=== PATIENT | female | born 1945 | race Caucasian/White ===

== ENCOUNTER 2018-05-30 06:06 | Day surgery (SDC) | payer MEDICARE, SELFPAY ==
[2018-05-26 11:42] VITALS: BMI 26.1
[2018-05-30] VITALS (10 sets, daily range): BP systolic 110–137; BP diastolic 56–66; PULSE 54–67; RESP 12–18; TEMP 36.2–36.6; O2SAT 92–100; BMI 26.0
[2018-05-30] MEDS: LACTATED RINGERS 1,000 ML 42 ML IV (07:00)
[2018-05-30] MEDS: fentaNYL 100 MCG/2 ML INJ 50 MCG IV (07:46)
--- NOTE | 2018-05-30 07:51 | PM.PREOP ---
Pre-operative Note Interval Note Pre-op Check: Yes History & Physical Reviewed by Physician and Yes Exam Performed Changes: No
[2018-05-30] MEDS: CEFAZOLIN VIAL 1 GM in SODIUM CHLORIDE 0.9% 100 ML 200 ML IV (08:02)
--- NOTE | 2018-05-30 08:08 | SUR.PREOP ---
Block start time [0746] . Monitoring initiated and maintained throughout procedure. Oxygen and medications given per anesthesiologist instructions. Patient remained stable throughout procedure, no adverse reactions noted. Block end time [0800]. pt family at bedside during block. pt alert and talking to staff during procedure. pt transported to or directly after completion of block.
[2018-05-30] MEDS: MIDAZOLAM 2 MG/2 ML VIAL 1 MG IV (08:10)
--- NOTE | 2018-05-30 08:37 | SUR.OPER ---
Lateral on padded OR bed with perez bag positioner, head on pillow, gel axillary roll in place, bottom leg bent with gel pad under knee to foot, upper leg straight and supported with pillows. Operative arm secured in shoulder positioning suspension device. non-operative arm secured on padded arm board. Safety belt at hip, tape over blanket securing lower legs.
[2018-05-30] MEDS: BUPIVACAINE 0.5% W/ EPI (PF) VIAL 30 ML INJ (08:57)
--- NOTE | 2018-05-30 09:25 | P.OP_ITS ---
Operative Date/Time/Diagnoses Date of procedure: 05/30/18 Time of procedure: 09:00 Pre-op diagnosis: Right shoulder high-grade partial-thickness rotator cuff tear Post-op diagnosis: other (Same with the addition of right shoulder mild osteoarthritis and loose body) Procedure & Clinicians Procedure: 1. Right shoulder arthroscopic major debridement with debridement of labral tear and partial-thickness rotator cuff tear as well as subacromial decompression. 2. Right shoulder arthroscopic removal of loose body Same procedure as scheduled: No (The 2nd procedure was added. The 1st procedure was less than anticipated as a rotator cuff repair was not necessary.) Indications: The patient is a 73-year-old woman who has had a history of chronic right shoulder pain that has not responded to non operative measures. After discussion the risks benefits alternatives she has agreed to shoulder arthroscopy with potential rotator cuff repair and subacromial decompression. Risks discussed included but were not limited to: Failure to improve, stiffness , infection, nerve damage, deep venous thrombosis, pulmonary embolism, stroke, myocardial infarction, permanent paralysis and . Surgeon: Michael Richmond Click Yes if Unassisted: Yes Anesthesia Type: General, Peripheral nerve block and Local Operative Notes Findings: 1. Moderate glenohumeral degenerative change with grade 2 changes on the humeral head and relative preservation of the glenoid. There were small inferior humeral osteophytes. There was also an approximately 4 x 3 x 2 mm chondral osseous loose body. 2. Widespread degenerative fraying of the labrum 3. Intact glenohumeral ligaments 4. Intact subscapularis 5. Intact biceps 6. Partial thickness tearing of the supraspinatus with about 4 mm of uncovering of the footprint with a loose flap in the glenohumeral joint 7. Intact infraspinatus 8. Normal axillary pouch with the exception of the small osteophyte mentioned above. 9. Minimal fraying but no tearing of the bursal rotator cuff 10. Type 2 acromion with impingement lesion 11. Acromioclavicular joint not visualized 12. Exam under anesthesia notable for full range of motion and no evidence for pathologic laxity. Closure Type: primary Specimen(s): none sent Implants & Drains: None. Estimated Blood Loss (mL): 10 Blood products transfused: none Procedure in detail: The patient was seen in the preoperative area where she identified her right shoulder as the operative site and this was marked with my initials. She received preoperative antibiotics and underwent the induction of an interscalene block for postoperative pain control. She was then taken to the operating room and placed on the operating room table in the supine position where she underwent the induction of a general anesthetic. She was examined under anesthesia with the result given above. She was then repositioned the left lateral decubitus position with an axillary roll and padding for all pressure points. She was stabilized in this position using the perez bag. A farmer tree fruit and nut crops-out was performed prior to draping. The right arm was repaired from the fingertips to the base the neck with ChloraPrep in the usual fashion and she was draped through sterile drapes. The arm was placed in 10 lb of balanced skin suspension. Subcutaneous landmarks were outlined on the skin with a marking pen and portal sites selected. The posterior portal was created and the arthroscope inserted in the glenohumeral joint. Diagnostic arthroscopy was performed with the result given above. An anterior portal was used for the shaver. The shaver was inserted and used to excise the loose body, debride the labrum and debride the rotator cuff flap to a stable base. The footprint of the rotator cuff was carefully inspected it did not appear that in the absence of bursal involvement there would need to be a repair. The rotator cuff was marked with a percutaneously placed suture. The arthroscope was withdrawn from the glenohumeral joint and reinserted into the subacromial bursa through the posterior portal. The suture was identified and the surrounding cuff carefully inspected. There was no need for rotator cuff repair. A bursectomy was performed for visualization. The type 2 acromion was converted to a type 1 acromion using the cutting block technique due to the impingement lesion. I did not expose the acromioclavicular joint due to the lack of preoperative symptoms. At the completion of the subacromial decompression, all equipment was removed. The wounds were closed with 4 0 Monocryl and Steri-Strips. The subcutaneous tissues and the subacromial bursa were each injected with 10 mL of 0.5% Marcaine with epinephrine for postoperative pain control. Dressings of sterile 4x4s, an ABD and an adhesive dressing were applied. The patient's arm was placed in a sling. She was transported to the recovery room in good condition having tolerated the procedure well. Complications: none Condition: stable Disposition: PACU Plan for aftercare: The patient will be maintained on a standard arthroscopic subacromial decompression physical therapy protocol with range of motion and strengthening as tolerated. She will wear the sling for comfort only. Our plan is for her to be discharged today.
[2018-05-30] MEDS: OXYCODONE IR 5 MG TABLET PO (09:40)
== END 2018-05-30 10:15 | disposition home or self-care (01) ==
PROVIDERS: Visit Provider Orthopaedic Surgery
PROC: (CPT 29827; principal; 2018-05-30 07:45)
DX: M75.111 Incomplete rotator cuff tear or rupture of right shoulder, not specified as traumatic (principal); M24.011 Loose body in right shoulder; I48.91 Unspecified atrial fibrillation; I10 Essential (primary) hypertension; G89.18 Other acute postprocedural pain
CPT/HCPCS: 29822; 29826; 64415; 64450; J0690; J1100; J2250; J2405; J3010

== ENCOUNTER 2023-09-26 07:37 | Inpatient (IN) | payer MEDICARE, SELFPAY ==
[2023-09-19 12:33] VITALS: BMI 23.8
[2023-09-26] VITALS (16 sets, daily range): BP systolic 115–150; BP diastolic 44–97; PULSE 62–90; RESP 8–17; TEMP 35.9–36.4; O2SAT 95–100; BMI 23.8
--- NOTE | 2023-09-26 08:56 | PM.PREOP ---
Pre-operative Note Interval Note History & Physical reviewed/Exam performed by Physician: Yes Changes to H&P: No
[2023-09-26] MEDS: ACETAMINOPHEN 325 MG TABLET 975 MG PO (08:58)
[2023-09-26] MEDS: LACTATED RINGERS 1,000 ML 42 ML IV ×2 (08:58→11:05)
[2023-09-26] MEDS: CEFAZOLIN 2 GM/100 ML PREMIX 100 ML IV ×3 (09:54→18:01)
--- NOTE | 2023-09-26 09:59 | PM.OP.1 ---
Operative Date/Time/Diagnoses Date of procedure: 09/26/23 Time of procedure: 09:59 Pre-op diagnosis: 1. L3-4, L4-5, L5-S1 spondylolisthesis 2. L3-4, L4-5, L5-S1 spinal stenosis with neurogenic claudication 3. L3-4, L4-5, L5-S1 foramen stenosis with radiculopathy Post-op diagnosis: same Procedure & Clinicians Procedure: 1. L3-4, L4-5, L5-S1 Postero-lateral and posterior interbody fusion 2. L3-4, L4-5, L5-S1 interbody cage placement. 3. L3-4, L4-5, L5-S1 decompressive laminectomy with bilateral facetecomies 4. L3-4, L4-5, L5-S1 Posterior segmental instrumentation 5. [place] of bone marrow from iliac crest 6. Utilization of microsurgical technique and operating microscope 7. Utilization of robotic assisted navigation Same procedure as scheduled: Yes Indications: Patient has been having chronic back pain and worsening lumbar radiculopathy and symptoms of neurogenic claudication. Patient has MRI of her lumbar spine showing L3-4 L4-5 L5-S1 spondylolisthesis along with central and neural foraminal stenosis correlating with her physical exam findings of neurogenic claudication and radiculopathy. Patient failed multiple conservative management with worsening pain weakness and numbness in her lower extremity. Patient has been having difficulty performing activity of daily living. After discussing risks benefits of treatment options, patient elected proceed with surgery. Surgeon: Denis Jones Bowling Alley Attendant: Colt Paul Anesthesia Type: General Operative Notes Closure Type: primary Specimen(s): none sent Prosthetic devices, grafts, tissues, transplants, or devices: Globus CREO MIS screws, Rise cages Applied: catheter Estimated Blood Loss (mL): 350 Procedure in detail: Patient was seen in the preoperative area. Risks and benefits of the surgery was discussed with the patient. Informed consent was obtained from the patient and placed in the chart. Surgical site was marked. Patient was taken to the operative room. General anesthesia was administered. Prophylactic antibiotic was given to the patient less than 30 min before the incision was made. Patient was placed into a prone position on the Adrián table. Patient's back was then prepped and draped in the sterile fashion. Time-out was performed at this time. After patient was prepped and draped, patient's PSIS was palpated and marked bilaterally. Small 1 cm incision was made over the PSIS for placement of the reference probes. Two trocar was placed into the PSIS 1 on each side. The reference probe was attached to the trocar of the reference apparatus. At this time the C-arm imaging was used to confirm AP and lateral of L3-4, L4-L5, L5-S1 vertebrae and merged the C-arm imaging using the Sensorflare PC robotic navigation system with the CT of the lumbar spine. After successful merging was completed and confirmed, skin marker was used to julianna out the skin incision using the Sensorflare PC robotic arm. Bilateral incision was made at this time. Pre templated trajectory was used and guided using the Sensorflare PC robotic navigation system for bilateral L3, L4, L5, S1 pedicle screw placement. This was done by using the robotic arm to guide the high-speed bur to make a cortical entry point. Next a drill was placed also using the robotic arm and guided using the navigation system drilling partially through bilateral L3, L4, L5 and S1 pedicles. Next L3, L4, L5, S1 pedicle screws it was pre templated and measured was placed onto the power speedboat driver and inserted into the pedicles bilaterally. 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 Decision was made to skip the left L5 pedicle and place pedicle screws in the other 7 pedicles. After all 7 screws were placed C-arm imaging was taken of both AP and lateral to confirm the placement. Excellent placement of the screws were confirmed and a matched precisely with the pre planned screw placement using the navigation system. MARs retractor was inserted using SavvySystemsivation guidence. Globus MARS retractors was placed inside the incision and docked onto the L3, L4 and L5 lamina. Using microsurgical technique and operating microscope, a L3, L4, L5 laminectomy and L3-4, L4-5, L5-S1 facetectomy was performed using a Kerrison rongeur. The laminectomy and facetectomy was performed in order to decompress patient's cauda equina as well as the nerve roots exiting at the L3-4, L4-5, L5-S1 level. Patient was found have severe lateral recess and neural foramen stenosis which was fully decompressed after the laminectomy and facetectomy. More than 75% of the facets were removed during the process of decompression rendering L3-4, L4-5, L5-S1 level grossly unstable and required a fusion procedure at the same time. The disc space at L3-4, L4-5, L5-S1 was identified, and a total diskectomy was performed at L3-4, L4-5, L5-S1 level. The endplates were decorticated using a rasp and shaver. The total diskectomy and decortication was performed at L3-4, L4-5, L5-S1 level in order to to accomplish a L3-4, L4-5, L5-S1 fusion. The local bone from the laminectomy and facetectomy was saved for local bone grafting. After the total diskectomy and decortication was completed, DBM bone graft material was combined with local bone that was harvested earlier. L3-4 L4-5 also was found have significant central stenosis due to facet arthropathy and hypertrophied ligamentum flavum which was fully decompressed after the laminectomy and facetectomy was completed. At this time, a separate skin is incision was made over the iliac crest. A Jamshidi needle was inserted into the iliac crest through a separate skin incision. 5 cc of bone marrow aspiration was obtained through the separate skin incision using a Jamshidi needle from the iliac crest. The bone marrow aspiration was combined with local bone and the DBM bone grafting material. The bone grafting material was placed into the L3-4, L4-5, L5-S1 interbody space along with a expandable cage. The cage was expanded to its maximum height using the torque limiting screwdriver. The disc preparation as well as the cage insertion were also performed under navigation guidance. After the cage was placed, AP and lateral C-arm imaging was taken to confirm placement of the cage and excellent position was confirmed. Globus MARS retractor was inserted and docked onto the L3-4, L4-5, L5-S1 posterolateral gutter on the right side. Using the power drill, posterior-lateral decortication was performed at L3-4, L4-5, L5-S1 level until bleeding cortical bone was identified. The remaining bone grafting material was placed into the L3-4, L4-5, L5-S1 posterior lateral gutter he order to accomplish posterolateral fusion at the L3-4, L4-5, L5-S1 level. At this time the tulips were attached to the L3, L4, L5, S1 pedicle screw shanks. After measuring the length of the rods, they were inserted into the tulips of the pedicle screws and locked in place using locking caps and torque limiting screwdriver bilaterally. Total 7 caps and 2 titanium rods was used in order to complete the posterior instrumentation construct. After all the hardware was placed, and confirmed with AP and lateral C-arm imaging, the wound was then irrigated with sterile normal saline and packed with Ray-Betty gauze for 3 min to accomplish hemostasis. After the gauze was removed the deep fascia was closed with #1 Vicryl suture. The subcutaneous layer was closed with 2-0 Vicryl. The skin was closed with skin tomas. Patient tolerated the procedure well. There were no complications. Neuro monitoring system was used to monitor patient's neurologic status throughout entire procedure. There was no disturbance of the neural monitoring signals throughout the case. Complications: none Post-operative Condition: stable Disposition: PACU Plan for aftercare: Admit to inpatient hospital
--- NOTE | 2023-09-26 10:24 | SUR.OPER ---
Prone on spine table, head in foam head support, padded chest and pelvic supports, gel pad at knees, lower legs supported by pillows; nipples, genitalia and toes free of pressure, arms secured on foam padded arm boards at <90 degrees abduction. Tape over blanket at thigh secured to table.
[2023-09-26] MEDS: BUPIVACAINE LIPOSOME 266 MG/20 ML VIAL INJ (10:32)
[2023-09-26] MEDS: BUPIVACAINE 0.25% (PF) 30 ML, EPINEPHrine 0.15 MG INJ (10:32)
--- NOTE | 2023-09-26 14:29 | DI.RAD.S_ITS ---
PROCEDURE: XR LUMBAR SPINE 2-3V INDICATIONS: L3-4, L4-5, L5-S1 TLIF (ROBOT) TECHNIQUE: 3 intraoperative fluoroscopic spot films were obtained COMPARISON: None. FINDINGS: Low resolution intraoperative spot films show appropriate positioning of L3, L4, L5 and S1 pedicle screws mild with associated interbody fusion cages. IMPRESSION: 1. Fluoroscopic guidance Approved by: Jason Blanchard M.D. on 09/26/2023 at 15:01
[2023-09-26] MEDS: HYDROMORPHONE 1 MG INJ IV ×2 (14:55→15:05)
[2023-09-26] MEDS: hydrOXYzine 50 MG/ML INJ 25 MG IM (14:56)
[2023-09-26] MEDS: OXYCODONE IR 5 MG TABLET PO (15:07)
--- NOTE | 2023-09-26 15:26 | SUR.PHASEI ---
Report called to Junie Dubon.
--- NOTE | 2023-09-26 15:51 | SUR.PHASEI ---
Patient transferred to the floor with her belongings bag. Bedside report given to Junie. VS stable. IV and rodriguez patent. Dressing checked with RN.
[2023-09-26] MEDS: LACTATED RINGERS 1,000 ML 125 ML IV (16:40)
[2023-09-26] MEDS: HYDROMORPHONE 0.5 MG INJ IV ×2 (16:40→23:25)
[2023-09-26] MEDS: ONDANSETRON 4 MG/2 ML INJ IV (16:40)
[2023-09-26] MEDS: allopurinoL 100 MG TABLET 300 MG PO (18:00)
--- NOTE | 2023-09-26 19:40 | PC.NURSE ---
Around 1730, pt requested to stand at the bedside to help relieve pain/pressure from back and to reposition pt. When pt sat up and dangled at bedside, this RN reassessed dressing. There were mendoza on dressing from [employer], and she reported that there was slight shadowing. Pt's L side of dressing was completely shadowed over, and R side only had the sm shadow julianna from [employer]. This RN reported this finding in pass down to night RN.
[2023-09-26] MEDS: DOCUSATE 100 MG CAPSULE PO (21:11)
[2023-09-26] MEDS: FLUTICASONE 120 SPRAY/16 GM SPRAY.SUSP NASAL (21:11)
[2023-09-26] MEDS: SENNOSIDES 8.6 MG TABLET 17.2 MG PO (21:12)
[2023-09-26] MEDS: EZETIMIBE 10 MG TABLET PO (21:12)
[2023-09-26] MEDS: TRAZODONE 50 MG TABLET PO (21:12)
[2023-09-26] MEDS: MELOXICAM 7.5 MG TABLET 15 MG PO (21:12)
[2023-09-26] MEDS: OXYCODONE IR 10 MG TABLET PO (21:12)
--- NOTE | 2023-09-26 23:48 | PC.NURSE ---
Lower back staple oozing blood, reinforced dressing with gauze, abd pad and tape. Pt tolerated well, will continue to monitor
[2023-09-27] MEDS: CEFAZOLIN 2 GM/100 ML PREMIX 100 ML IV (02:00)
[2023-09-27] MEDS: OXYCODONE IR 10 MG TABLET PO (02:04)
[2023-09-27] MEDS: LEVOTHYROXINE 88 MCG TABLET PO (05:27)
[2023-09-27 05:57] LABS: Hematocrit 30.2 % (36-46); Hemoglobin 9.9 g/dL (12.0-16.0)
[2023-09-27 06:00] VITALS: BP 93/40; PULSE 77; RESP 18; TEMP 36.4; O2SAT 98
--- NOTE | 2023-09-27 07:41 | P.DS_ITS ---
History of Present Illness History of Present Illness Date Patient Seen: 09/27/23 Time Patient Seen: 07:30 Chief complaint: TLIF Narrative: Procedure: 1. L3-4, L4-5, L5-S1 Postero-lateral and posterior interbody fusion 2. L3-4, L4-5, L5-S1 interbody cage placement. 3. L3-4, L4-5, L5-S1 decompressive laminectomy with bilateral facetecomies 4. L3-4, L4-5, L5-S1 Posterior segmental instrumentation 5. [place] of bone marrow from iliac crest 6. Utilization of microsurgical technique and operating microscope 7. Utilization of robotic assisted navigation Same procedure as scheduled: Yes Indications: Patient has been having chronic back pain and worsening lumbar radiculopathy and symptoms of neurogenic claudication. Patient has MRI of her lumbar spine showing L3-4 L4-5 L5-S1 spondylolisthesis along with central and neural foraminal stenosis correlating with her physical exam findings of neurogenic claudication and radiculopathy. Patient failed multiple conservative management with worsening pain weakness and numbness in her lower extremity. Patient has been having difficulty performing activity of daily living. After discussing risks benefits of treatment options, patient elected proceed with surgery. This morning patient is feeling well. She is ready to go back home. She has already been able to ambulate on her own to the bathroom and back. Pain is controlled with oral pain relievers. Denies any vomiting fever or chills. She had an episode of nausea which was alleviated with oral medication. Denies any numbness or tingling into the lower extremities. Discharge Providers Provider Date of admission: 09/26/23 07:37 Discharge Date: 09/27/23 Primary care physician: Jesse Lopez DO Consults: 09/26/23 15:52 Consult to Occupational Therapy Evaluate & Treat Comment: Physician Instructions: Evaluate and treat Consult to Physical Therapy Evaluate & Treat Comment: Physician Instructions: Evaluate and Treat Discharge provider: Barrington Harris PA-C Summary Hospital Course Hospital Course: Pain control. Physical therapy. Time Spent with Patient Time spent: Less than 30 minutes Exam Vital Signs (past 8 hours): - 09/26/23 23:45 09/27/23 06:00 Temperature 97.1 F L 97.6 F Pulse Rate 69 77 Respiratory Rate 16 18 Blood Pressure 115/44 L 93/40 L Pulse Oximetry 99 98 Oxygen Flow Rate 0 0 Oxygen Delivery Method Room Air Oxygen Flow Rate 0 Narrative Exam Narrative: Patient is found sitting comfortably up in her bed. She is able to easily flex forward to show incision site. Dressing appears in incision appears to be well- maintained no sign of drainage. Nontender to palpation. No pain along posterior thigh or calf bilaterally. Sensation grossly intact lower extremities bilaterally. Able to dorsiflex and plantar flex against resistance at the ankle bilaterally. Const General: cooperative and comfortable Resp Effort & Inspection: normal respiratory effort and able to speak in complete sentences Objective Labs 09/27/23 05:46 Labs: Laboratory Results - last 24 hr 09/27/23 05:46 Hgb 9.9 L Hct 30.2 L PFSH Medical History (Updated 09/19/23 @ 13:24 by Wendi Kinsey RN) Depression Anesthesia complication (2007) Esophageal spasm Hearing impaired Esophageal pain Bilateral shoulder pain Vaginal prolapse Herniated disc Back pain Hypotension HTN (hypertension) Paroxysmal A-fib Cellulitis Gastric ulcer Gout Elevated cholesterol Macular degeneration Surgical History (Updated 09/19/23 @ 13:24 by Wendi Kinsey RN) Hx of repair of right rotator cuff Hx of toe surgery S/P carpal tunnel release H/O: hysterectomy Hx of sinus surgery Hx of thyroidectomy Hx of tonsillectomy Social History household members: spouse Smoking Status: Current every day smoker alcohol intake: current Discharge Assessment & Plan Assessment and Plan Assessment: Status post 1. L3-4, L4-5, L5-S1 Postero-lateral and posterior interbody fusion 2. L3-4, L4-5, L5-S1 interbody cage placement. 3. L3-4, L4-5, L5-S1 decompressive laminectomy with bilateral facetecomies 4. L3-4, L4-5, L5-S1 Posterior segmental instrumentation Plan of Treatment: Work with physical therapy today for approval to be discharged home. No deep bending or twisting at the waist. No lifting more than 10 pounds. Multimodal pain control. Medications already prescribed and received preoperatively. Follow up in 2 weeks for wound check at [facility]. Discharge Plan Discharge Plan Patient Disposition: Home Provider Discharge Comment: DC pending PT approval Discharge orders & Medications Prescriptions: Continued fluticasone propionate [Flonase Allergy Relief] 50 mcg/actuation [place],Suspension 1 spray INTRANASAL BID allopurinol 300 mg Tablet 300 mg PO QPM PreserVision AREDS-2 [id number] Capsule 1 tab PO BID trazodone 50 mg Tablet 50 mg PO BEDTIME metoprolol succinate 100 mg Tablet Extended Release 24 Hr 100 mg PO DAILY levothyroxine 88 mcg Tablet 88 mcg PO DAILY lisinopril 10 mg Tablet 10 mg PO DAILY hydrochlorothiazide 25 mg Tablet 25 mg PO DAILY ezetimibe [Zetia] 10 mg Tablet 10 mg PO BEDTIME omeprazole 20 mg Tablet,Delayed Release (Dr/Ec) 20 mg PO DAILY PRN (Reason: GI Upset) Discontinued meloxicam 15 mg Tablet 15 mg PO BEDTIME Follow up/Referrals: Jesse Lopez DO [Primary Care Provider] - Diet/Activity/Treatments Diet: Diet as Tolerated Activity: No deep bending or twisting at the waist. No lifting more than 10 pounds. Cold/Heat Therapy: Heating pad to low back as needed for pain. Skin/Wound/Dressing Care Report to your healthcare provider any signs of infection, such as:: chills, fever, night sweats, unusual drainage and unusual redness Dressing: May shower. Keep dressing as dry as possible. If dressing becomes wet or dirty, remove and replace with clean, dry gauze. Visit Report/Discharge Packet Instructions: DI for Transforaminal Lumbar Interbody Fusion Stand Alone Forms: Patient Portal/API, Stroke Signs & Symptoms Discharge Data Primary Care Provider: Jesse Lopez Quality VTE Deep Vein Thrombosis/Pulmonary Embolism Present on Admission: No
[2023-09-27] MEDS: polyethylene glycoL 3350 17 GM POWD.PACK PO (08:26)
[2023-09-27] MEDS: DOCUSATE 100 MG CAPSULE PO (08:26)
[2023-09-27] MEDS: VIT C/E/ZN/COPPR/LUTEIN/ZEAXAN CAPSULE 1 CAP PO (08:26)
[2023-09-27] MEDS: ACETAMINOPHEN 325 MG TABLET 650 MG PO ×2 (08:27→14:48)
[2023-09-27 08:37] VITALS: BP 113/41; PULSE 67; RESP 16; TEMP 36.7; O2SAT 98
--- NOTE | 2023-09-27 09:53 | OT.IP.EVAL ---
Current Diagnoses Spondylolisthesis, lumbar region (09/26/23) Spinal stenosis, lumbar region with neurogenic claudication (09/26/23) Surgery Performed Operation Date: 09/26/23 09:15 Actual Procedures p L3-4, L4-5, L5-S1 TLIF w. posterior instrumentation- Robot - Denis Jones MD Past Medical History (Last Updated 09/19/23 @ 13:24 by Wendi Kinsey, RN) Anesthesia complication (2007) Back pain Bilateral shoulder pain Cellulitis Depression Elevated cholesterol Esophageal pain Esophageal spasm Gastric ulcer Gout Hearing impaired Herniated disc HTN (hypertension) Hypotension Macular degeneration Paroxysmal A-fib Vaginal prolapse Surgical History (Last Updated 09/19/23 @ 13:24 by Wendi Kinsey RN) H/O: hysterectomy Hx of repair of right rotator cuff Hx of sinus surgery Hx of thyroidectomy Hx of toe surgery Hx of tonsillectomy S/P carpal tunnel release Occupational Therapy Inpatient Evaluation/Re-Eval M1 PT/OT-IP Prior Functional Status Start: 09/27/23 09:55 Freq: NEEDED Status: Active Protocol: Document 09/27/23 09:55 [facility] (Rec: 09/27/23 10:11 [facility] [id number]) Medical Review Prior Functional Status Communication Independent Mobility and Gait Pt had to use shopping cart at the grocery store. Pt also states at times her legs would just give out. Activities of Daily Living and IADL's Pt states able to do all ADl and IADl needs. Social History Household Members spouse Living Arrangements House Number of Floors (Floors) One Floor Number of Stairs To Enter/Railing? One step with left rail, landing, and two more step with left rail going up to the deck. Then another two steps to the door with left rail going up. Home Environment High Toilet,Walk in Shower, Bidet Home Equipment Four Wheel Walker,Straight Cane,Manual Wheelchair,Shower Seat with Backrest,Hand Held Shower Additional Social History Comment Pt's granddaughter to be staying for the next 6 weeks and also her is able to assist her. M2 OT-IP Current Condition Start: 09/27/23 09:55 Freq: Status: Active Protocol: Document 09/27/23 09:55 [facility] (Rec: 09/27/23 10:11 [facility] [id number]) Occupational Therapy Current Condition Current Condition Evaluation Date 09/27/23 Treatment Diagnosis S/P L3-4, L4-5, L5-S1 postero- lateral/posterior interbody fusion. Diagnosis Onset Date 09/26/23 Post Operative Precautions Lumbar Precautions Log Roll,No Twisting,Limit Bending,Lifting Restriction of 10 lbs,Gait Belt above Incisional Area M3 OT- IP Subjective and Pain Start: 09/27/23 09:55 Freq: Status: Active Protocol: Document 09/27/23 09:55 [facility] (Rec: 09/27/23 10:11 [facility] [id number]) OT- Subjective Occupational Therapy Visit Type Type Initial Evaluation Visit Start Time 09:00 Visit Stop Time 09:53 Occupational Therapy Visit Comments Patient Comments Pt agreed to get up and pt's granddaughter in the room for caregiver training. Patient/Caregiver Goals TO go home. OT Pain Assessment Pain When Pain Assessed At Rest Pain Present Pain Present Denied Pain M4 OT- IP ADL's Start: 09/27/23 09:55 Freq: Status: Active Protocol: Document 09/27/23 09:55 [facility] (Rec: 09/27/23 10:11 [facility] [id number]) OT [id number] General Evaluation Self-Feeding Ability Independent OT ADL-Grooming Comments OT Grooming Comments NOt performed. Educated of back precautions for ADL needs . OT ADL-Oral Care Comments Oral Care Comments NOt performed. OT ADL-Dressing General Eval Lower Body Dressing Ability Maximum Assistance Comments OT Dressing Comments Educated and practiced use of sock aid and wireless operator for LB dressing needs. OT ADL-Toileting Comments OT Toileting Comments Spoke on use of pads/brief at night and possibly getting a BSC as pt frequently gets up at night. Pt states to be calling her granddaughter to assist her at night to the bathroom. OT ADL-Bathing Comments OT Bathing Comments Pt will have assist. M5 OT- IP IADL's Start: 09/27/23 09:55 Freq: Status: Active Protocol: Document 09/27/23 09:55 [facility] (Rec: 09/27/23 10:11 [facility] [id number]) OT-Instrumental Activities of Daily Living Deficits IADL Deficits Identified Deficits Home Safety Awareness Awareness of Need for Assistance at Home Good Awareness Home Safety Comments Pt a little groggy and best to have at least supervision for all needs. Medication Management Medication Management Comments Pt to have assist as needed. Money Management Money Management Comments Pt to have assist as needed. Meal Preparation Meal Preparation Caregiver Provides Assist Nutrition Faculty Member Nutrition Faculty Member Caregiver Provides Assist M6 OT- IP Functional Cognition Start: 09/27/23 09:55 Freq: Status: Active Protocol: Document 09/27/23 09:55 [facility] (Rec: 09/27/23 10:11 [facility] [id number]) Cognitive Factors Limiting Selfcare Function Cognitive Ability Level of Alertness Alert,Confusional State Patient Orientation Name,Place,Situation Attention Span Ability Capable of Focused Attention, Capable of Sustained Attention Ability to Follow Commands Able to Follow One Step Commands with Increased Time, Able to Follow One Step Commands with Repetition Cognitive Comments Cognitive Assessment Comments Pt a little groggy and had to be reminded of her back precautions. VC for hand placement and safety awareness . OT- Vision and Hearing OT- Hearing Assessment OT- Hearing Assessment Hearing Impaired,Use of Hearing Aids OT- Vision Assessment Visual Acuity Glasses All The Time Visual Attentiveness WFL Occular Pursuits WFL M7 OT- IP Mobility and Balance Start: 09/27/23 09:55 Freq: Status: Active Protocol: Document 09/27/23 09:55 [facility] (Rec: 09/27/23 10:11 [facility] [id number]) OT- Bed Mobility Assessment Rolling Level of Assistance Standby Assistance Supine to Sit Supine to Sit Assist Standby Assistance Sit to Supine Sit to Supine Assist Contact Guard Assistance, Minimal Assistance Scooting Scooting to Edge of Bed Standby Assistance OT-Transfer Assessment Sit to and From Stand Sit to and from Stand Contact Guard Assistance Technique Transfer Destination Bed Transfer Technique Stand Step Pivot Devices Transfer Assistive Devices Gait Belt,Front Wheeled Walker Comments Mobility Comments Pt needing education for log rolling. CGA to GONZALO to help get her legs back into bed. Able to educated pt's grand daughter how to doc/doff the gait belt and now to assist with transfers. BP sitting 108/38, standing 87 /38, sitting 91/44, standing 64/28, and in supine 112/42. Pt states feeling tired and a little dizzy when up on her feet. Nursing notified. OT- Balance Assessment Sitting Balance and Reactions Static Sitting Balance Ability Normal Dynamic Sitting Balance Ability Good Standing Balance and Reactions Static Standing Balance Ability Good M8 OT- IP Objective Assessments Start: 09/27/23 09:55 Freq: Status: Active Protocol: Document 09/27/23 09:55 [facility] (Rec: 09/27/23 10:11 [facility] [id number]) OT Gross Range of Motion Upper Extremity Range of Motion Assessment Within Functional Limits M9 OT- IP Assessment and Plan Start: 09/27/23 09:55 Freq: Status: Active Protocol: Document 09/27/23 09:55 [facility] (Rec: 09/27/23 10:11 [facility] [id number]) OT Summary Assessment and Plan Potential Rehabilitation Potential Good Analytic Complexity at Evaluation Low Summary OT Impairments Balance,Functional Cognition, Functional Mobility,Dressing, Toileting,Bathing,Toilet Transfers,Shower Transfers Progress Towards Goals Slow Progress due to Medical Issues Assessment Summary Pt low complexity and main barriers are hypotensive and will need some assist with LB dressing equipment or assist especially for dressing and bathing needs. Pt may benefit from FWW but unable to fully assess as pt having low BP. Pt to go home with assist when medically stable. Goals Grooming Goal Independent Dressing Goal Independent,Supervisor Audit Clerks,Sock Aid Toileting Goal Independent Bathing Goal Standby Assistance Toilet Transfer Goal Independent Shower Transfer Goal Standby Assistance Days to Meet Goals 5 Frequency of Treatment Frequency Of Treatment Once a Day Treatment Plan OT Treatment Plan ADL Training,Functional Cognition Training,Functional Mobility,Patient/Family Education,Discharge Planning Discharge Recommendations OT Discharge Recommendations Home with Assistance Home Equipment Needs BSC,FWW? Transportation Needs at Discharge Private Vehicle
--- NOTE | 2023-09-27 10:00 | PT.IIE ---
Current Diagnoses Spondylolisthesis, lumbar region (09/26/23) Spinal stenosis, lumbar region with neurogenic claudication (09/26/23) Surgery Performed Operation Date: 09/26/23 09:15 Actual Procedures p L3-4, L4-5, L5-S1 TLIF w. posterior instrumentation- Robot - Denis Jones MD Surgical History (Last Updated 09/19/23 @ 13:24 by Wendi Kinsey, RN) H/O: hysterectomy Hx of repair of right rotator cuff Hx of sinus surgery Hx of thyroidectomy Hx of toe surgery Hx of tonsillectomy S/P carpal tunnel release Medical History (Last Updated 09/19/23 @ 13:24 by Wendi Kinsey RN) Anesthesia complication (2007) Back pain Bilateral shoulder pain Cellulitis Depression Elevated cholesterol Esophageal pain Esophageal spasm Gastric ulcer Gout Hearing impaired Herniated disc HTN (hypertension) Hypotension Macular degeneration Paroxysmal A-fib Vaginal prolapse Physical Therapy Inpatient Evaluation/Re-Eval M1 PT/OT-IP Prior Functional Status Start: 09/27/23 13:08 Freq: NEEDED Status: Active Protocol: Document 09/27/23 10:00 [facility] (Rec: 09/27/23 13:22 AB [id number]) Medical Review Prior Functional Status Medical History Reviewed Yes Communication able to make needs known Mobility and Gait pt stated that she was modified independent with all mobilities and ambulation without AD Activities of Daily Living and IADL's per OT note: Pt states able to do all ADl and IADl needs. Social History Household Members spouse Living Arrangements House Number of Floors (Floors) One Floor Number of Stairs To Enter/Railing? 5 steps L rail ascending Home Environment High Toilet,Walk in Shower, Bidet Home Equipment Four Wheel Walker,Shower Seat without Backrest,Hand Held Shower Additional Social History Comment pt's grand daughter plans to stay with pt until october 28 to assist pt pt has a walking stick M2 PT-IP Current Condition Start: 09/27/23 13:08 Freq: NEEDED Status: Active Protocol: Document 09/27/23 10:00 [facility] (Rec: 09/27/23 13:22 AB [id number]) Physical Therapy Current Condition Current Condition Evaluation Date 09/27/23 Treatment Diagnosis s/p L3-4, 4-5, L5S1 TLIF; difficulty in walking Onset Date 09/26/23 M3 PT-IP Subjective Start: 09/27/23 13:08 Freq: NEEDED Status: Active Protocol: Document 09/27/23 10:00 [facility] (Rec: 09/27/23 13:22 AB [id number]) Subjective Physical Therapy Visit Type Type Initial Evaluation Visit Start Time 10:00 Visit Stop Time 10:50 Number of ALUM PLANT SUPERVISOR Visits 0 Physical Therapy Visit Comments Patient Comments I want to go home. Therapy Pain Assessment Pain When Pain Assessed At Rest Pain Present Pain Present Pain Reported Location Back Intensity 2 Scale Used Numeric (0 - 10) Pain Management Techniques Distraction,Modification of Treatment,Re-positioning, Timing of Activity with Medications M4 PT-IP Mobility and Gait Start: 09/27/23 13:08 Freq: NEEDED Status: Active Protocol: Document 09/27/23 10:00 AB (Rec: 09/27/23 13:22 AB [id number]) PT-Bed Mobility Assessment Rolling Type of Rolling Log Rolling Level of Assist Minimal Assistance Supine to Sit Supine to Sit Minimal Assistance PT-Transfer Assessment Sit to and From Stand Sit to and from Stand Contact Guard Assistance,1 Person Assistance,Use of Upper Extremities Equipment Transfer Assistive Device Gait Belt,Front Wheeled Walker Orthotic/Prosthetic Devices or Brace: No Transfers Transfer Destination Chair Transfer Technique Stand Step Pivot Transfer Ability Level of Assist Contact Guard Assistance,1 Person Assistance,Use of Upper Extremities Comments Mobility Comments pt supine in bed. agreeable to do PT. grand daughter in room with pt. obtained PLOF and home set up from pt and grand daughter. pt with slight confusion and difficutly following directions. BP in supine 122/ 45. OT saw pt prior to PT. pt stated that she knows her back precautions and was able to recall and also stated that she knows how to do the log roll. attempted log roll bed mobility but pt unable to remember on how to do. reviewed post-op handout and educated on log roll bed mobility. pt completed log roll supine to sit min A and max cues. pt required repeated cues due to difficulty following instructions. pt able to sit on EOB. no c/o dizziness. BP: 126/37. pt sat for 2 more minutes and BP checked again: 112/48. pt stated that she wants to go home today and became emotional. BP checked again after a few mintues of sitting: BP 136/49. pt completed sit to stand CGA. able to stand for a few minutes and BP 82/49. instructed pt to sit back on EOB. BP checked again in sittin/46. pt agreed to sit on the chair. sit to stand CGA and step transfer to chair CGA using fWW. positioned pt on the chair. call light and table placed within reach. ambulated not attempted due to orthostatic hypotension. BP seated on the chair after transfers: 116/36 . call light within reach. pt stated that she needs to use the toilet. NAC and nurse in room to assist pt. PT-Balance Assessment Sitting Balance and Reactions Static Sitting Balance Ability Normal Dynamic Sitting Balance Ability Good Standing Balance and Reactions Static Standing Balance Ability Good Dynamic Standing Balance Ability Fair Device Used FWW M5 PT-IP Objective Assessments Start: 09/27/23 13:08 Freq: NEEDED Status: Active Protocol: Document 09/27/23 10:00 AB (Rec: 09/27/23 13:22 [id number]) Orientation Orientation/Cognition Level of Alertness Confusional State Orientation Name,Place,Situation Language Function Ability No Deficits Noted,Hard of Hearing Safety Awareness Decreased Safety Awareness Memory Description Short Term Impaired Gross Range of Motion Lower Extremity ROM Assessment Within Functional Limits Strength Lower Extremity Strength Assessment Within Functional Limits Coordination Assessment Gross Coordination Gross Coordination WNL Sensation Assessment Sensation Sensation Description Numbness,Tingling Comments Sensation Comments c/o numbness/tingling on R toes Muscle Tone Muscle Tone WNL Yes M6 PT-IP Treatment Start: 09/27/23 13:08 Freq: NEEDED Status: Active Protocol: Document 09/27/23 10:00 AB (Rec: 09/27/23 13:22 AB [id number]) Physical Therapy Treatment Education Education Provided Precautions,Safety M7 PT-IP Assessment and Plan Start: 09/27/23 13:08 Freq: NEEDED Status: Active Protocol: Document 09/27/23 10:00 AB (Rec: 09/27/23 13:22 AB [id number]) PT Summary Assessment and Plan Potential Rehabilitation Potential Fair Status of Condition at Evaluation Evolving Summary Impairments Pain,ROM,Strength,Balance, Coordination,Sensation,Tone, Cognition,Bed Mobility, Transfers,Gait,Activity Tolerance Assessment Summary pt is a 78 y/o F s/p L 3-4, 4- 5, L5S1 TLIF POD 1. pt requiring min A with bed mobility and CGA with transfers using FWW but limitied activity due to orthostatic hypotension. pt plans to go home and family to assist her. Caregiver training set up for this afternoon at 130 pm. will continue so assess progress. Goals Bed Mobility Goal Independent Transfer Goal Independent,Front Wheeled Walker,Four Wheeled Walker Gait Goal Independent,Front Wheel Walker ,Four Wheel Walker Gait Distance 250 Other Goals up/down 5 steps L rail ascending SBA Days to Meet Goals 5 Frequency of Treatment Frequency Of Treatment Twice a Day Treatment Plan Physical Therapy Treatment Plan Bed Mobility Training,Transfer Training,Gait Training, Therapeutic Exercise,Balance Retraining,Post Op Education, Discharge Planning,Hot or Cold Pack,Neuromuscular Re-ed, Coordination Retraining,Manual Therapy Precautions Lumbar Precautions Log Roll,No Twisting,Limit Bending,Lifting Restriction of 10 lbs,Gait Belt above Incisional Area Recommendations To Nursing Amount of Assist Needed 1 Person Assist Discharge Recommendations PT Discharge Recommendations Home with Assistance Equipment Needed for Home Before FWW if not safe with 4WW Discharge Transportation Needs at Discharge Private Vehicle
--- NOTE | 2023-09-27 11:46 | CM.DANOTE ---
Initial DCP Assessment Visit Reviewed EMR and team rounds for pt's medical status and updates. Went to room to meet with pt, however she was working with OT. Met with granddaughter, who is staying w/pt for the next 6-weeks to provide cg assistance. Plan is for pt to d/c later today after her blood pressure stabilizes. Payor: Medicare Attending: Dr. Jones Pt is a 78 year-old F admitted following her TLIF surgery completed yesterday. She has a hx of chronic back pain with worsening lumbar radiculopathy, and has tried many conservative attempts to manage the pain without lasting benefit. She how has lower extremity numbness in one leg as well. She is reportedly independent at baseline in ADL's and IADL's, however has limited function lately due pain. Pt resides with her spouse on [address]. Both her granddaughter and spouse will be assisting with her immediate recovery needs, plan is home today with assistance, OP Ortho f/u in 2-weeks. No further DCP needs indicated at this time. Discharge Planning/Care Management CM Discharge Assessment Start: 09/27/23 11:41 Freq: Status: Active Protocol: Document 09/27/23 11:42 DPL (Rec: 09/27/23 11:45 DPL [id number]) Discharge Planning Assessment Assigned Waste Recycler LAWRENCE Edmonds Advance Directives? No History Provided By Family Member,Medical Record Expected Length of Stay 1 Has Patient been admitted in last 30 No days? Prior Living Arrangements House Household Members spouse Type of transporation used prior to Drives own vehicle admit Independent with ADL's Yes Is patient alert and oriented? Yes Caregiver for Another No Community Services used prior to Physical Therapy admission: DME Already Rented / Owned Bath Bench,Elevated Toilet Seat,FWW / Walker,Cane Patient/Family Preference OP PT Therapy Barriers to Discharge No Discharge Plan Home Community Services Physical Therapy Transportation Arrangement Granddaughter Referrals Initiated None needed Whiteboard Updated in Patient Room with Yes name and ext. # of Waste Recycler Review Status In Process Please Provide Date Initial DC 09/27/23 Assessment Was Performed Pre-Anesthesia Assessment Start: 09/19/23 12:33 Freq: Status: Active Protocol: Document 09/19/23 12:33 CAB (Rec: 09/19/23 13:47 CAB [id number]) Pre-Anesthesia Assessment PAC Comment History of succinylcholine allergy (pt denies MH), verified with TEVIN Grace, pt does not need to be first case. Preferred Name Sarah Patient Information Reviewed Via Phone Assessment Assessment Completed With Patient Diagnostic Results BMP/CMP,CBC,EKG Comment Outside labs/EKG scanned Primary Care Provider Jesse Lopez Seen Specialist in Last 12 Months Yes Specialist Seen Chemical Lab Supervisor,Orthopedist Primary Language Beninese Watermaster Required No Height 157.48 cm Weight 58.967 kg Body Mass Index (BMI) 23.8 Hearing Ability Hearing Impaired,Use of Hearing Aid Visual Assist Glasses Dentition Type Teeth, Natural Present Barriers to Learning None Other Aids No Hx Anesthesia Reactions Yes: Anaphlaxis to succinylcholine during thyroidectomy Hx Family Anesthesia Reaction Yes: Daughter is allergic to succinylcholine as well Hx Malignant Hyperthermia No: Denies any history of Hx Blood Transfusions No Anesthesia Review Requested No Head Track Coach No alcohol intake current alcohol intake frequency a few times a week Smoking Status Current every day smoker Tobacco type cigarettes Substance Use Type does not use Pain Present Pain Reported Musculoskeletal Symptoms Abnormal Gait,Difficulty Walking,Muscle Weakness, Numbness History of Falling (Recent or History of Yes ) Comment Denies back pain Patient is completely paralyzed or No completely immobile Mental Status Oriented to own ability Is patient on oxygen? No Does patient have LYNN/SOB No Hx Sleep Apnea No CPAP/BIPAP use not prescribed Currently Taking a Beta Heather Yes: Metoprolol Can You Climb a Flight of Stairs Without Yes SOB Hx Chest Pain No Hx SOB No Hx Syncope or Dizziness Yes: If I get up too fast, I have low blood pressure Anti-Coagulant Therapy No Has a Solicitor Patent Yes: Last visit 07/26/[address] Yang @ [facility] Cardiac Testing No: Echo 06/18/23 & Stress test 05/31/23 @ [facility] scanned Hx Pacemaker/ICD No Cardiac Clearance Received Yes Comment Cardiac records scanned and in surgery folder for dos review Diet Type At Home Regular Dysphagia Yes: Occasional r/t esophageal spasms Gastrointestinal Symptoms Reflux Comment Esophageal spasms Bladder Pattern Frequency,Urgency Urinary Catheter Present No Hx Urinary Self Catheterization No Diabetes No Patient No Lactating No Hx Drug Resistant Organism No Presence of External or Internal Medical Yes: hearing aids Devices Received a COVID vaccine? Yes Received all doses? Yes Marital Status Lives With spouse Current Living Arrangements House Number of Floors (Floors) One Floor Support System Child/Children,Spouse Comment Granddaughter will be staying at the home to assist w/care as well as spous Does the Patient Have Assistance After Yes Surgery Patient Discharge Plan Description Return Home Comment Pt advised overnight length of stay per surgeon Feels Safe in Current Environment Yes Been Physically Hurt or Threatened By a No Person in Current Environment Do you have thoughts of harming yourself None or others? Are you currently considering suicide? No Do you have a plan to hurt yourself or No Plan others? Do You Have Any Spiritual Beliefs That No May Affect Your HC Choices? Do You Have Any Cultural Practices That No May Affect Your HC Choices? Comment Buddhist Who Can We Speak to About Patient's Care Family, friends Identifying Code for Release of Patient Declines to issue Information Health Care Proxy/Next of Kin Yves () Health Care Proxy Phone Number cell: [phone] Home: Emergency Contact Name Adry (granddaughter) Emergency Contact Advance Directives? No Power of Shuttlecock Feather Trimmer No PAC Instructions Durable medical equipment, Medications to take/avoid, Nasal antibiotic,No ETOH/ petroleum product on skin DOS, NPO,Post-op transportation,Pre -surgical wash,Sensory aids, Sturdy shoes/comfortable clothes,Do not bring valuables and remove jewelry
[2023-09-27] MEDS: LACTATED RINGERS 500 ML 1000 ML IV (12:16)
--- NOTE | 2023-09-27 13:32 | PT.IPTN ---
Current Diagnoses Spondylolisthesis, lumbar region (09/26/23) Spinal stenosis, lumbar region with neurogenic claudication (09/26/23) Surgery Performed Operation Date: 09/26/23 09:15 Actual Procedures p L3-4, L4-5, L5-S1 TLIF w. posterior instrumentation- Robot - Denis Jones MD Physical Therapy Treatment Note M2 PT-IP Current Condition Start: 09/27/23 13:08 Freq: NEEDED Status: Active Protocol: Document 09/27/23 10:00 AB (Rec: 09/27/23 13:22 AB [id number]) Physical Therapy Current Condition Current Condition Evaluation Date 09/27/23 Treatment Diagnosis s/p L3-4, 4-5, L5S1 TLIF; difficulty in walking Onset Date 09/26/23 M3 PT-IP Subjective Start: 09/27/23 13:08 Freq: NEEDED Status: Active Protocol: Document 09/27/23 14:18 TS (Rec: 09/27/23 14:41 TS [id number]) Subjective Physical Therapy Visit Type Type Treatment Note Visit Start Time 13:32 Visit Stop Time 14:16 Notes BP sitting 138/52. Number of REPAIRER ART OBJECTS Visits 1 Physical Therapy Visit Comments Patient Comments Pt found resting in bed, family in room, pt is agreeable to PT. Therapy Pain Assessment Pain When Pain Assessed During Mobility Pain Present Pain Present Pain Reported M4 PT-IP Mobility and Gait Start: 09/27/23 13:08 Freq: NEEDED Status: Active Protocol: Document 09/27/23 14:18 TS (Rec: 09/27/23 14:41 TS [id number]) PT-Bed Mobility Assessment Rolling Type of Rolling Log Rolling Level of Assist Contact Guard Assistance Supine to Sit Supine to Sit Contact Guard Assistance Sit to Supine Sit to Supine Contact Guard Assistance Scooting Scooting to Edge of Bed Contact Guard Assistance PT-Transfer Assessment Sit to and From Stand Sit to and from Stand Contact Guard Assistance,1 Person Assistance,Use of Upper Extremities Equipment Transfer Assistive Device Gait Belt,Front Wheeled Walker Orthotic/Prosthetic Devices or Brace: No Comments Mobility Comments Pt recalled 3/3 spinal precautions prior to mobility. She performed logroll and supine to sit CGA with good carryover of sequencing. Caregiver instructed in and performed donning of gait belt sitting EOB. BP in sitting 138/52, pt denied any dizziness or lightheadedness. STS from bed CGA from caregiver with use of 4WW, pt required cues for locking of brakes. She ambulated to toilet ~10' CGA with use of 4WW. pt voided and performed own pericare, required cue for decreased twisting. She ambulated in hallway ~200'CGA from caregiver with 4WW. She performed stairs x6 CGA/Celestino with single rail and CRISIS CLINICIAN, pt required cues for step sequencing. She ambulated back to room. Sit to supine into bed CGA, pt required cue for logroll onto back. Pt was left in bed, caregiver in room, nursing notified. Gait Assessment Gait Gait Assistance Required: Contact Guard Assist Distance (Feet) 200 Able to Maintain Weight Bearing Status No During Gait Assistive Devices Assistive Device Front Wheeled Walker Orthotic/Prosthetic Devices or Brace: No Gait Deviations General Gait Pattern Decreased Stride Length, Decreased Feet Clearance Factors Limiting Gait Function Factors Limiting Gait Function Decreased Activity Tolerance, Decreased Strength,Pain,Poor Balance,Poor Safety Awareness Comments Gait Comments See mobility comments. Stair Climbing Assessment Evaluation Level of Assist On Stairs Contact Guard Assistance, Minimal Assistance Devices Stair Climbing Assistive Devices Left Railing,Right Railing Technique/Endurance Stair Climbing Direction Ascend and Descend Stair Climbing Technique Step to Step Number of Steps Climbed 6 PT-Balance Assessment Sitting Balance and Reactions Static Sitting Balance Ability Normal Dynamic Sitting Balance Ability Good Standing Balance and Reactions Static Standing Balance Ability Good Dynamic Standing Balance Ability Fair Device Used FWW M5 PT-IP Objective Assessments Start: 09/27/23 13:08 Freq: NEEDED Status: Active Protocol: Document 09/27/23 10:00 AB (Rec: 09/27/23 13:22 AB [id number]) Orientation Orientation/Cognition Level of Alertness Confusional State Orientation Name,Place,Situation Language Function Ability No Deficits Noted,Hard of Hearing Safety Awareness Decreased Safety Awareness Memory Description Short Term Impaired Gross Range of Motion Lower Extremity ROM Assessment Within Functional Limits Strength Lower Extremity Strength Assessment Within Functional Limits Coordination Assessment Gross Coordination Gross Coordination WNL Sensation Assessment Sensation Sensation Description Numbness,Tingling Comments Sensation Comments c/o numbness/tingling on R toes Muscle Tone Muscle Tone WNL Yes M6 PT-IP Treatment Start: 09/27/23 13:08 Freq: NEEDED Status: Active Protocol: Document 09/27/23 14:18 TS (Rec: 09/27/23 14:41 TS [id number]) Physical Therapy Treatment Education Education Provided Precautions,Safety M7 PT-IP Assessment and Plan Start: 09/27/23 13:08 Freq: NEEDED Status: Active Protocol: Document 09/27/23 14:18 TS (Rec: 09/27/23 14:41 TS [id number]) PT Summary Assessment and Plan Potential Rehabilitation Potential Fair Summary Impairments Pain,ROM,Strength,Balance, Coordination,Sensation,Tone, Cognition,Bed Mobility, Transfers,Gait,Activity Tolerance Progress Towards Goals Progressing Toward Goals Assessment Summary Sarah is making good progress with her mobility this session. She is CGA for all bed mobility and demonstrates good carryover of sequencing. She progressed her gait to ~200'CGA with use of 4WW. She performed stairs x6 with single rail and CRISIS CLINICIAN from caregiver CGA/Celestino. She recalled 3/3 spinal precautions, did require some cueing during session for precaution awareness. PT is recommending home with assistance at this time. Goals Bed Mobility Goal Independent Transfer Goal Independent,Front Wheeled Walker,Four Wheeled Walker Gait Goal Independent,Front Wheel Walker ,Four Wheel Walker Gait Distance 250 Other Goals up/down 5 steps L rail ascending SBA Days to Meet Goals 5 Frequency of Treatment Frequency Of Treatment Twice a Day Treatment Plan Physical Therapy Treatment Plan Bed Mobility Training,Transfer Training,Gait Training, Therapeutic Exercise,Balance Retraining,Post Op Education, Discharge Planning,Hot or Cold Pack,Neuromuscular Re-ed, Coordination Retraining,Manual Therapy Precautions Lumbar Precautions Log Roll,No Twisting,Limit Bending,Lifting Restriction of 10 lbs,Gait Belt above Incisional Area Recommendations To Nursing Amount of Assist Needed 1 Person Assist Discharge Recommendations PT Discharge Recommendations Home with Assistance Equipment Needed for Home Before FWW if not safe with 4WW Discharge Transportation Needs at Discharge Private Vehicle
[2023-09-27 13:55] VITALS: BP 117/42; PULSE 84; RESP 16; TEMP 36.7; O2SAT 95
== END 2023-09-27 15:17 | disposition home or self-care (01) | DRG 455 ==
PROVIDERS: Admitting Provider Orthopaedic Surgery Orthopaedic Surgery of the Spine; PCP Family Medicine Adult Medicine; Referring Provider Orthopaedic Surgery Orthopaedic Surgery of the Spine; Visit Provider Orthopaedic Surgery Orthopaedic Surgery of the Spine
PROC: 0SG10AJ Fusion of 2 or more Lumbar Vertebral Joints with Interbody Fusion Device, Posterior Approach, Anterior Column, Open Approach (ICD-10-PCS; principal; 2023-09-26 09:15)
DX: M48.062 Spinal stenosis, lumbar region with neurogenic claudication (principal); M43.16 Spondylolisthesis, lumbar region; M43.17 Spondylolisthesis, lumbosacral region; M54.16 Radiculopathy, lumbar region; M48.07 Spinal stenosis, lumbosacral region; M54.17 Radiculopathy, lumbosacral region; I10 Essential (primary) hypertension; M10.9 Gout, unspecified; F32.A Depression, unspecified; F17.210 Nicotine dependence, cigarettes, uncomplicated
CPT/HCPCS: 36415; 72100; 76000; 85014; 85018; 97116; 97162; 97165; 97530; 97535; C1713; C9290; J0171; J0690; J1100; J1170; J2405; J3010; J3410